=== PATIENT | male | born 1930 | race Caucasian/White ===

== ENCOUNTER 2020-08-31 10:35 | Outpatient (RCR) | payer MEDICARE ==
[~2020-08-31 10:35] MED LIST: ALLO100T PO; ALPR0.5T3 PO; ATOR1TAB19 PO; BUPR300T92 PO; FLOM0.4C39 PO; LITH300C PO; MULT1TAB10 PO; PROT1TAB2 PO
== END 2020-09-22 ==
LOC: M ST 10:35
PROVIDERS: ATTEND Psychiatry & Neurology Neurology
DX: G20 Parkinson's disease (principal)

== ENCOUNTER → 2020-09-07 | Outpatient (CLI) | payer MEDICARE ==
[~2020-09-07] MED LIST changes: +BARIUM SULFATE 700 MG TABLET (E-Z-DISK) As Ordered ONE; +E-Z-PAQUE 96% w/w SUSP 176GM BTL As Ordered ONE; +VARIBAR NECTAR 40% w/v 240ML SUSP BTL As Ordered ONE; +VARIBAR PUDDING 40% w/v 230ML TUBE As Ordered ONE
--- NOTE | 2020-09-07 16:43 | REP ---
INDICATION: DYSPHAGIA. COMPARISON: None. TECHNIQUE: The procedure was performed by LISA Luo, under the direct supervision of Dr. Addison. The procedure was performed with Carmela Richardson from speech pathology present. 5 ml aliquots of thin, pudding, mixed fruit, soft food, hard food and pill consistency barium was administered. FINDINGS: Penetration was visualized with thin consistency barium. The detailed report of this examination will be provided by speech pathology. IMPRESSION: Penetration was visualized with thin consistency, a detailed report will be provided by speech pathology. 2.8 minutes of fluoroscopy time was utilized for this procedure. Some fluoroscopic images are performed with last image hold technology. These images require no additional radiation <Electronically signed by Paris Murray > 09/07/20 1516 <Electronically signed by Daniel Addison > 09/07/20 1959
== END ==
LOC: M RAD 14:14
PROVIDERS: ATTEND Psychiatry & Neurology Neurology
DX: R13.10 Dysphagia, unspecified (principal)